=== PATIENT | female | born 1975 | race Hispanic/Latino ===

== ENCOUNTER 2023-08-30 16:00 | Outpatient (CLI) | payer BC | END 2023-08-30 16:01 | disposition home or self-care (01) | LOC: SLEEPLAB 16:00 | PROVIDERS: ATTEND Physician Assistant | DX: G47.33 Obstructive sleep apnea (adult) (pediatric) (principal); G47.61 Periodic limb movement disorder; G31.84 Mild cognitive impairment of uncertain or unknown etiology; F41.8 Other specified anxiety disorders; K21.9 Gastro-esophageal reflux disease without esophagitis; E66.9 Obesity, unspecified; G47.00 Insomnia, unspecified; I10 Essential (primary) hypertension; R51.9 Headache, unspecified; R06.83 Snoring; R40.0 Somnolence; R53.83 Other fatigue; R09.89 Other specified symptoms and signs involving the circulatory and respiratory systems; Z68.43 Body mass index [BMI] 50.0-59.9, adult | CPT/HCPCS: 95810 ==